=== PATIENT | male | born 1950 | race Caucasian/White ===

== ENCOUNTER 2017-07-17 13:26 | Emergency (ER) | payer BC ==
[~2017-07-17] VITALS: Ht 185.4 cm; Wt 77.5 kg
[2017-07-17] MEDS ORDERED: MEDROL DOSEPAK4 MG PO (15:52)
[2017-07-17 16:18] VITALS: BP 133/77
== END 2017-07-17 16:18 | disposition home or self-care (01) ==
LOC: EME 13:26
DX: M25.462 Effusion, left knee (principal)
CPT/HCPCS: 73564; 99281; 99284